=== PATIENT | male | born 1945 | race Caucasian/White ===

== ENCOUNTER 2019-12-08 11:01 | Outpatient (CLI) | payer MEDICARE, OTHER, SELFPAY ==
--- NOTE | 2019-12-08 06:00 | DI.RAD_ITS ---
EXAM: XR PAIN CLINIC FLUORO JOINT IN CLINICAL HISTORY: Dx: Osteoarthritis of knee TECHNIQUE: 2D and realtime digital imaging was performed. CONTRAST MATERIAL: Refer to procedure report. COMPARISON: No exams were available for comparison FINDINGS: Fluoroscopy was provided for Dr. Mensah during the performance of a radiofrequency ablation. Please ref er to the procedure report for complete details. Fluoro time: 3.7 seconds IMPRESSION:
[2019-12-08 11:51] VITALS: BP 166/86; PULSE 67; RESP 18; TEMP 36.1; O2SAT 98
[2019-12-08] MEDS: Lactated Ringers 1,000 ML 80 ML IV (12:18)
[2019-12-08] MEDS: fentaNYL 100 MCG/2 ML VIAL IVP (12:26)
[2019-12-08] MEDS: Midazolam 2 MG/2 ML VIAL IVP (12:28)
[2019-12-08] MEDS: Bupivacaine 0.5% Pres-Free 10 ML VIAL IJ (12:55)
[2019-12-08 12:56] VITALS: BP 152/80; PULSE 58; RESP 14; O2SAT 99
[2019-12-08] MEDS: Lidocaine 2% Pres-Free 5 ML VIAL IJ (12:58)
--- NOTE | 2019-12-08 13:22 | PDOC.PAIN ---
Pain Clinic Procedure Note Procedure Note Procedure Note: RIGHT GENICULAR NERVE RADIOFREQUENCY ABLATION WITH THE COOLIEF MACHINE Date of Service: December 08, 2019 Patient: DAYDAY PINEDA Provider: Domingo Mensah MD Pre-operative diagnosis: right knee osteoarthritis Post-operative diagnosis: same as above COMMENTS:Previous Genicular nerve block to the right knee by Dr Alston at [facility] [place] provided significant pain relief. DAYDAY PINEDA has been referred to the [facility] for RIGHT genicular nerve radiofrequency ablation. DAYDAY was interviewed and the medical record reviewed. There were no medical, pharmacologic, radiographic or other structural contraindications to attempting fluoroscopically guided RIGHT genicular nerve radiofrequency ablation. Risks and potential side effects as well as potential benefit of the procedure were reviewed with DAYDAY PINEDA , and HIS voiced concerns were addressed. After I believed that the patient was completely informed, the printed consent form was signed. Standard time-out procedure was performed. DAYDAY was placed in the supine position on the fluoroscopy table and automated blood pressure cuff and pulse oximeter applied. The skin entry points for approaching right superolateral genicular nerve, the superomedial genicular nerve and the inferomedial genicular was identified under the most advantageous fluoroscopic view and marked. Following thorough Chlorhexadine preparation of the skin and draping, 1% lidocaine infiltration of the skin entry point and subcutaneous tissues was accomplished using a 1.5 25G needle. Next, the 50mm 17G with 4mm active tip was advanced to os at the location of the specific nerve roots (3) using fluoroscopic guidance. Next, motor testing was performed and no abnormal findings were found. Next, 1 cc of 2% Lidocaine was injected at each site. The lesion was then created with 80 degrees C for 2 minutes and 30 seconds. Post lesinoing, 2 cc of 0.5% Bupivacaine was injected at each site and needle was withdrawn. The needles were removed without difficulty. DAYDAY's vital signs were stable throughout the procedure and were as recorded in the docflowsheet by the nursing staff. Patient received 1mg of IV versed and 25mcg of IV fentanyl for this procedure. Follow up plans and appointments were discussed with the DAYDAY PINEDA . Post procedure instruction was given as documented in nursing documentation and having met discharge criteria, DAYDAY was discharged from the [facility]. COMMENTS: No complications. This procedure will result in denervation of three peripheral nerves, right superolateral genicular nerve, the right superomedial genicular nerve and the inferomedial genicular nerve. Erwin WJ1, Nimco SJ, Jono JG, Stephon JG, Morales ROMERO, Park PH, Mckeon JW. Radiofrequency treatment relieves chronic knee osteoarthritis pain: a double-blind randomized controlled trial. Pain. 2010;152(3):481-7. doi: 10.1016/j.pain.2010.09.029. Daniela S1, Terrell ON2, Marlen Y3, ?zl?shaw P2, Juan Ramon U1, Richy ?m?rl? I. Which one is more effective for the clinical treatment of chronic pain in knee osteoarthritis: radiofrequency neurotomy of the genicular nerves or intra-articular injection? Int J Rheum Dis. 2016 Mar 02. I personally performed this entire procedure. Domingo Mensah MD Attending Physician
== END 2019-12-08 11:21 ==
PROVIDERS: Visit Provider Internal Medicine
DX: M17.11 Unilateral primary osteoarthritis, right knee (principal)
CPT/HCPCS: 64640; 77002; J2250; J3010

== ENCOUNTER 2020-04-14 07:33 | Outpatient (CLI) | payer MEDICARE, OTHER, SELFPAY ==
--- NOTE | 2020-04-14 06:00 | DI.RAD_ITS ---
EXAM: XR PAIN CLINIC FLUORO JOINT IN CLINICAL HISTORY: Right Genicular Radiofrequency Ablation TECHNIQUE: 2D and realtime digital imaging was performed. CONTRAST MATERIAL: Refer to procedure report. COMPARISON: No exams were available for comparison FINDINGS: Fluoroscopy was provided for Dr. Alston during the performance of a right genicular radiofrequency abl ation. Please refer to the procedure report for complete details. Fluoro time: 64 seconds IMPRESSION:
[2020-04-14 07:50] VITALS: BP 147/80; PULSE 57; RESP 16; TEMP 36.5; O2SAT 95
[2020-04-14 09:22] VITALS: BP 170/81; PULSE 60; RESP 16; O2SAT 98
[2020-04-14] MEDS: methylPREDNISolone ACETATE 40 MG/ML VIAL IJ (09:22)
[2020-04-14] MEDS: Lidocaine 2% Pres-Free 5 ML VIAL IJ (09:23)
[2020-04-14] MEDS: Bupivacaine 0.5% Pres-Free 10 ML VIAL IJ (09:23)
[2020-04-14] MEDS: Lidocaine 1% Pres-Free 30 ML VIAL IJ (09:23)
--- NOTE | 2020-04-14 10:35 | PDOC.PAIN ---
Pain Clinic Procedure Note Procedure Note Procedure Note: [Right/Left] Knee Radiofrequency with Coolief Machine PROCEDURE NOTE Date of Service: April 14, 2020 Patient: DAYDAY GUTIERREZ Provider: Jan Alston DO, MPH Pre Operative Diagnosis: Right knee osteoarthritis Post Operative Diagnosis: Same Mr. Gutierrez had his full Genicular nerve ablation completed last month. He is doing great from this procedure, except for one spot. It appears that the RFA to the interomedial genicular branch of the saphenous nerve. [place] of [place] [facility] [place] and identified this sensory branch as the cause of his pain. At that point I recommended that we complete a very wide RFA at the medial aspect of the superior left tibia so as to make sure the we ablate this sensory nerve. PROCEDURE: 1. Radiofrequency ablation to the Inferomedial genicular branch from the saphenous nerve DAYDAY GUTIERREZ was brought into brought to the procedure room and placed on the exam table in a comfortable supine position. The place for needle placement was obtained by manual palpation with radiographic confirmation. The sterile field was prepared by chloroprep and sterile drapes. Local anesthesia superficial and deep was provided by local infiltration of 5 cc of 2% Lidocaine. Two 17g 50 mm radiofrequency introducer needles with a 4mm active tip were placed overlying the left knee joint and using fluoroscopic guidance the needle was advanced over the inferiomedial portion of the tibial condyle until a bony endpoint was met. Attempted aspiration yielded no blood. Lateral x-ray views showed all the needles at 50% depth of the femur and tibia. Motor stimulation was tested ad 2.0 volts with no leg movement. Images were saved in AP and lateral. A mixture consisting of 1 cc of was slowly injected. Then a radiofrequency ablation of each of the geniculate nerves were done at 80 degrees Celsius for 2 minutes and 30 seconds each. I adjusted the needles several times and completed a total of 8 ablations to the superiomedial left tibia. I then injected 1 cc of Depomedrol (40 mg/cc) and 4 cc of Bupivacaine (0.5%) to the area. The needles were withdrawn. POST PROCEDURE EVALUATION: 010 pain Follow up plans and appointments were discussed with the DAYDAY . Post procedure instruction was given as documented in nursing documentation and having met discharge criteria, DAYDAY was discharged from the [facility]. COMMENTS: No complications. F/U with our office as needed. I personally performed this entire procedure. Jan Alston DO, MPH Pain Management Attending Physician
== END 2020-04-14 07:53 ==
PROVIDERS: Visit Provider Preventive Medicine Occupational Medicine
DX: M25.561 Pain in right knee (principal); M17.11 Unilateral primary osteoarthritis, right knee
CPT/HCPCS: 64624; 77002; J1030